=== PATIENT | male | born 1950 | race Caucasian/White ===

== ENCOUNTER → 2017-04-03 | Outpatient (CLI) | payer MEDICARE, OTHER ==
--- NOTE | 2017-04-04 08:43 | BD ---
EXAMINATION TYPE: MG DEXA axial skeleton. DATE OF EXAM: 04/03/2017 COMPARISON: NONE CLINICAL HISTORY: Osteoarthritis. Height: 63 Weight: 138 FRAX RISK QUESTIONS: Alcohol (3 or more units per day): no Family History (Parent hip fracture): no Glucocorticoids (More than 3mos): no (Ex: prednisone, prednisolone, methylprednisolone, dexamethasone, and hydrocortisone). History of Fracture in Adulthood: yes Secondary Osteoporosis: 1. Type 1 Diabetes: no 2. Hyperthyroidism: no 3. Menopause before 45: n/a 4. Malnutrition: no 5. Chronic liver disease: no Rheumatoid Arthritis: no Current Tobacco Use: no RISK FACTORS HISTORY OF: Hip Fracture (Right/Left): yes lt Spine Fracture: no History of Wrist Fracture: yes right Surgery to Spine/Hip(right/left)/Wrist (right/left): no Family History of Osteoporosis: no Active: yes Diet low in dairy products/other sources of calcium: no Lost more than 2 inches in height since high school: no Frequent falls: no Poor Health: no Hyperparathyroidism: no Adrenal Insufficiency: no MEDICATIONS: Additional History: EXAM MEASUREMENTS: Bone mineral densitometry was performed using the [employer] System. Bone mineral density as measured about the Lumbar spine is: ----- L1-L4(G/cm2): 1.250 T Score Values are as follows: ----- L2: -0.4 ----- L3: 0.8 ----- L4: 2.7 ----- L1-L4: 0.6 Bone mineral density baseline Bone mineral density about the R hip (g/cm2): 0.743 Bone mineral density about the L hip (g/cm2): 0.726 T Score values are as follows: -----R Neck: -2.1 -----L Neck: -2.2 -----R Total: -0.6 -----L Total: -0.8 Bone mineral density baseline IMPRESSION: Osteopenia (T Score between -2.5 and -1 as noted by T score values at femoral neck level in both hips . There is slightly increased risk of fracture and the patient may be considered for treatment. Re-Sc reen 2-5 years. NOTE: T-SCORE=SD OF THE YOUNG ADULT MEAN.
== END | disposition home or self-care (01) ==
LOC: RADBDWWP 16:28
PROVIDERS: ATTEND Family Medicine
DX: M85.851 Other specified disorders of bone density and structure, right thigh (principal); M85.852 Other specified disorders of bone density and structure, left thigh
CPT/HCPCS: 77080

== ENCOUNTER → 2020-08-09 | Outpatient (CLI) | payer MEDICARE ==
--- NOTE | 2020-08-10 12:00 | ECHOF ---
Referral Reason:I50.30 congestive heart failure MEASUREMENTS -------- HEIGHT: 160.0 cm WEIGHT: 68.0 kg BP: RVIDd: 4.3 cm (< 3.3) IVSd: 1.2 cm (0.6 - 1.1) LVIDd: 3.3 cm (3.9 - 5.3) LVPWd: 1.3 cm (0.6 - 1.1) IVSs: 1.8 cm LVIDs: 2.3 cm LVPWs: 1.5 cm LAESV Index (A-L): 39.45 ml/m Ao Diam: 3.1 cm (2.0 - 3.7) AV Cusp: 1.9 cm (1.5 - 2.6) MV E [place]: 1.77 m/s MV DecT: 466 ms MV A [place]: 2.37 m/s MV E/A Ratio: 0.74 AR PHT: 764 ms RAP: 5.00 mmHg RVSP: 47.90 mmHg FINDINGS -------- Sinus rhythm. This was a technically adequate study. The left ventricular size is normal. There is mild concentric left ventricular hypertrophy. Overa ll left ventricular systolic function is low-normal with, an EF between 50 - 55 %. Left ventricular fillimg pressure cannot be estimated due to severe mitral annular calcification. Septal wall motio n is delayed and consistent with prior cardiac surgery. The right ventricle is moderate to severely enlarged. LA is moderately dilated 34-39 ml/m2 The right atrial size is normal. Interatrial and interventricular septum intact. There is mild aortic valve sclerosis. There is mild aortic regurgitation. There is no evidence of aortic stenosis. Erlu-oi-cihezshy mitral regurgitation is present. Moderate mitral stenosis , with a MVA of 1.6cm ( by PHT) MV Repair. Moderate tricuspid regurgitation present. There is moderate pulmonary hypertension. The right vivian tricular systolic pressure, as measured by Doppler, is 47.90mmHg. There is no pulmonic regurgitation present. The aortic root size is normal. IVC Not well visulized. There is no pericardial effusion. CONCLUSIONS -------- 1. The left ventricular size is normal. 2. There is mild concentric left ventricular hypertrophy. 3. Overall left ventricular systolic function is low-normal with, an EF between 50 - 55 %. 4. LA is moderately dilated 34-39 ml/m2 5. There is mild aortic valve sclerosis. 6. There is mild aortic regurgitation. 7. Twbh-da-wvjdjfkl mitral regurgitation is present.status post mitral valve repair 8. Moderate mitral stenosis. 9. , with a MVA of 1.6cm (by PHT) 10. Moderate tricuspid regurgitation present. 11. There is moderate pulmonary hypertension. 12. The right ventricular systolic pressure, as measured by Doppler, is 47.90mmHg. [employer]ED [employer] PCB DESIGNER: Thelma Grigsby RDCS
== END | disposition home or self-care (01) ==
LOC: RADECHMAIN 16:09
PROVIDERS: ATTEND Family Medicine
DX: I08.1 Rheumatic disorders of both mitral and tricuspid valves (principal); I27.20 Pulmonary hypertension, unspecified
CPT/HCPCS: 93306

== ENCOUNTER → 2024-08-14 | Outpatient (CLI) | payer OTHER ==
--- NOTE | 2024-08-14 13:48 | US ---
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 TECHNIQUE: Multiple sonographic images of the abdominal aorta are obtained with grayscale and color D oppler imaging. FINDINGS: EXAM MEASUREMENTS: Abdominal Aorta: Proximal: 1.8 x Mid: 1.6 x Distal: obscured by bowel gas. Bifurcation: Right Iliac: obscured by bowel gas. Left Iliac: obscured by bowel gas. PROGRAM ATTENDANT NOTES: Incidental finding gallstone visualized. IMPRESSION: Suboptimal study.Advise further investigation with CT or MRI to assess for possible AAA. [email or web address] [facility], , 08/14/2024 1:45 PM
== END | disposition home or self-care (01) ==
LOC: RADUSWWP 13:08
PROVIDERS: ATTEND Internal Medicine Hospice and Palliative Medicine
DX: Z13.6 Encounter for screening for cardiovascular disorders (principal); I50.42 Chronic combined systolic (congestive) and diastolic (congestive) heart failure; I25.10 Atherosclerotic heart disease of native coronary artery without angina pectoris
CPT/HCPCS: 76706

== ENCOUNTER → 2024-08-19 | Outpatient (CLI) | payer OTHER ==
--- NOTE | 2024-08-19 11:31 | XR ---
EXAMINATION TYPE: XR knee complete RT DATE OF EXAM: 08/19/2024 CLINICAL INDICATION: Male, 74 years old with history of M25.561 RIGHT KNEE PAIN, pain TECHNIQUE: 3 views of the knee were obtained. COMPARISON: None. FINDINGS: There is no acute fracture/dislocation evident in right knee. Moderate to severe narrowing and moderate spurring lateral tibiofemoral compartment. There is moderate narrowing patellofemoral and medial tibiofemoral compartments. Mild to moderate spurring patella femoral compartment is seen. Posterior medial surgical clips in the soft tissue are present proximal tibial level. IMPRESSION: As above. Moderate to severe degenerative changes are seen. [facility], , 08/19/2024 11:29 AM
[2024-08-19 15:13] LABS: BUN/Creat Ratio 16.14 Ratio (12.00-20.00); Blood Urea Nitrogen 22.6 mg/dL (9.0-27.0); Calcium 9.8 mg/dL (8.7-10.3); Chloride 96 mmol/L (96-109); Glucose 88 mg/dL (70-110); Magnesium 2.1 mg/dL (1.5-2.4); Potassium 4.8 mmol/L (3.5-5.5); Sodium 137 mmol/L (135-145); T4, Free (Free Thyroxine) 1.47 ng/dL (0.80-1.80)
[2024-08-19 15:56] LABS: NT-Pro-B-Type Natriuretic Pept 7963 pg/mL (0-125)
[2024-08-19 17:42] LABS: Urine Creatinine 61.1 mg/dL (39.0-259.0)
== END | disposition home or self-care (01) ==
LOC: RADXRMAIN 10:45
PROVIDERS: ATTEND Internal Medicine Hospice and Palliative Medicine
DX: M17.11 Unilateral primary osteoarthritis, right knee (principal)
CPT/HCPCS: 80048; 82043; 82570; 83735; 83880; 84439; 84443

== ENCOUNTER 2024-09-26 11:25 | Emergency (ER) | payer OTHER, MEDICARE ==
[2024-09-26 11:43] VITALS: RESP 16
--- NOTE | 2024-09-26 12:19 | ED ---
Eye Problem HPI - General Chief complaint: Eye Problems Stated complaint: Blurred vision Time Seen by Provider: 09/26/24 11:47 Source: patient, RN notes reviewed Mode of arrival: wheelchair Limitations: no limitations - History of Present Illness Initial comments: This is a 74-year-old male who presents to the emergency department for blurry vision in the right eye. States that it has been going on for the last 2 to 3 days, but when he woke up this morning it became worse. Denies any problems with the left eye. Denies any headaches, dizziness, or other symptoms. He does state that it has been several years since he has had his eyes examined. Denies any history of strokes. Not taking any blood thinners. Denies any injuries to the eye. Also denies any history of similar problems in the past. MD chief complaint: vision change - Related Data Home Medications Medication Instructions Recorded Confirmed Aspirin EC [Ecotrin Low Dose] 81 mg PO BID 09/26/24 09/26/24 Budesonide/Formoterol Fumarate 2 puff INHALATION RT-BID 09/26/24 09/26/24 [Symbicort 160-4.5 Mcg Inhaler] Capsaicin 0.025% Cream 1 applic TOPICAL BID PRN 09/26/24 09/26/24 Cetirizine HCl [Zyrtec] 10 mg PO HS 09/26/24 09/26/24 Dapagliflozin Propanediol [Farxiga] 10 mg PO DAILY@1200 09/26/24 09/26/24 Dexlansoprazole [Dexilant] 60 mg PO DAILY 09/26/24 09/26/24 Docusate [Colace] 100 mg PO DAILY PRN 09/26/24 09/26/24 Furosemide [Lasix] 40 mg PO DAILY 09/26/24 09/26/24 HYDROcodone/APAP 10-325MG [[place] 1 tab PO TID PRN 09/26/24 09/26/24 10-325] Multivitamins, Thera [Multivitamin 1 tab PO DAILY 09/26/24 09/26/24 (formulary)] Ondansetron [Zofran] 4 mg PO Q8HR PRN 09/26/24 09/26/24 Pravastatin Sodium [Pravachol] 20 mg PO HS 09/26/24 09/26/24 Sacubitril/Valsartan [Entresto 24 1 tab PO BID 09/26/24 09/26/24 mg-26 mg Tablet] Spironolactone [Aldactone] 12.5 mg PO DAILY 09/26/24 09/26/24 atenoloL [Tenormin] 25 mg PO DAILY 09/26/24 09/26/24 polyethylene glycoL 3350 [Miralax] 17 gm PO DAILY PRN 09/26/24 09/26/24 Allergies Allergy/AdvReac Type Severity Reaction Status Date / Time Penicillins Allergy Unknown Verified 09/26/24 14:47 Review of Systems ROS Statement: Those systems with pertinent positive or pertinent negative responses have been documented in the HPI. ROS Other: All systems not noted in ROS Statement are negative. Past Medical History Past Medical History: Coronary Artery Disease (CAD), Hyperlipidemia, Hyp ertension History of Any Multi-Drug Resistant Organisms: None Reported Past Surgical History: Coronary Bypass/CABG Past Psychological History: No Psychological Hx Reported Smoking Status: Never smoker Past Alcohol Use History: None Reported Past Drug Use History: None Reported General Exam Limitations: no limitations General appearance: alert, in no apparent distress Head exam: Present: atraumatic, normocephalic, normal inspection Eye exam: Present: normal appearance, PERRL, EOMI. Absent: scleral icterus, conjunctival injection, periorbital swelling Expanded Visual acuity (R) = 20/: 30 Visual acuity (L) = 20/: 40 IOP (R) in mmH IOP (L) in mmH IOP measured with: [place] Respiratory exam: Present: normal lung sounds bilaterally. Absent: respiratory distress, wheezes, rales, rhonchi, stridor Cardiovascular Exam: Present: regular rate, normal rhythm Neurological exam: Present: alert, oriented X3, CN II-XII intact Expanded Cerebellar function: Finger to Nose: Normal, Heel to Guevara: Normal, Romberg: Normal Upper motor neuron: Pronator Drift: Normal, Sensory Extinction: Normal Motor strength exam: RUE: 5, LUE: 5, RLE: 5, LLE: 5 Psychiatric exam: Present: normal affect, normal mood Skin exam: Present: warm, dry, intact, normal color. Absent: rash Course Vital Signs 09/26/24 09/26/24 09/26/24 11:40 14:17 16:36 Temperature 98 F 98.8 F Pulse Rate 77 77 80 Respiratory 16 16 16 Rate Blood Pressure 119/55 157/101 151/98 O2 Sat by Pulse 95 95 95 Oximetry Medical Decision Making - Medical Decision Making This is a 74-year-old male who presents to the emergency department for vision loss in the right eye. Was pt. sent in by a medical professional or institution? @ -No Did you speak to anyone other than the patient for history? @ -No Did you review nursing and triage notes? @ -Yes, and I agree, it is accurate with regards to the patient's symptoms. Were old charts reviewed? @ -No Differential Diagnosis? @ -CVA/TIA, retinal detachment, glaucoma, cataract, retinal artery occlusion, this is not meant to be an all-inclusive list. EKG interpreted by me (3pts min.)? @ -Not obtained X-rays interpreted by me (1pt min.)? @ -Not obtained CT interpreted by me (1pt min.)? @ -CT scan of the brain obtained. My interpretation identifies no acute intracranial hemorrhage. CTA of the head and neck obtained. My interpretation identifies no evidence of an aneurysm. U/S interpreted by me (1pt. min.)? @ -Not obtained What testing was considered but not performed? (CT, X-rays, U/S, labs)? Why? @ -None What meds were considered but not given? Why? @ -None Did you discuss the management of the patient with other professionals? @ -No Did you reconcile home meds? @ -No Was smoking cessation discussed for >3mins.? @ -No Was critical care preformed (if so, how long)? @ -No Were there social determinants of health that impacted care today? How? (H omelessness, low income, unemployed, alcoholism, drug addiction, transportation, low edu. Level, literacy, decrease access to med. care, [facility], rehab)? @ -No Was there de-escalation of care discussed even if they declined? (Discuss DNR or withdrawal of care, Hospice)? @ -No What co-morbidities impacted this encounter? (DM, HTN, Smoking, COPD, CAD, Cancer, CVA, Hep., AIDS, mental health diagnosis, sleep apnea, morbid obesity)? @ -CAD, HLD, HTN Was patient admitted / discharged? @ -Discharged. Bedside ocular ultrasound performed with ED attending, Dr. Brewer. No signs of retinal detachment or other acute process was identified. NIH performed as well and symptoms are all localized to the right eye. Lab work demonstrates mild leukopenia with a white blood cell count of 3.94 and is otherwise unremarkable. CT scan of the brain and CTA of the head and neck obtained revealing no acute process. Visual acuity performed and his vision is actually better in what he says is the affected eye. He was 20/30 in the right eye and 20/40 in the left. IOP's within normal limits at 15 in the right and 14 in the left. States that he is established with Dr. Andrews, ophthalmology. However, given that patient follows with Magda gordillo all appointments have to go directly through them. Case management coordinated with Magda gordillo who will schedule the patient an appointment with ophthalmology. Patient discharged home in stable condition. Case discussed with ED attending Dr. Brewer. Return precautions reviewed in depth, the patient is instructed to return to the emergency department with any new, worsening, or concerning symptoms. Patient verbalized understanding. Undiagnosed new problem with uncertain prognosis? @ -None Drug Therapy requiring intensive monitoring for toxicity (Heparin, Nitro, Insulin, Cardizem)? @ -None Were any procedures done? @ -None Diagnosis/symptom? @ -Blurry vision of the right eye Acute, or Chronic, or Acute on Chronic? @ -Acute Uncomplicated (without systemic symptoms) or Complicated (systemic symptoms)? @ -Uncomplicated Side effects of treatment? @ -None Exacerbation, Progression, or Severe Exacerbation] @ -Not applicable Poses a threat to life or bodily function? @ -This will depend on the cause and how he progresses - Lab Data Result diagrams: 09/26/24 12:17 09/26/24 12:17 Lab Results 09/26/24 09/26/24 09/26/24 Range/Units 12:17 12:17 12:17 WBC 3.94 L (4.50-10.00) 10*3/uL RBC 4.45 (4.40-5.60) 10*6/uL Hgb 13.1 (13.0-17.0) g/dL Hct 39.4 L (39.6-50.0) % MCV 88.5 (80.0-97.0) fL MCH 29.4 (27.0-32.0) pg MCHC 33.2 (32.0-37.0) g/dL Plt Count 180 (140-440) 10*3/uL MPV 8.7 L (9.5-12.2) fL Immature Gran % (Auto) 0 % Neutrophils % 61.2 % Lymphocytes % 23.6 % Monocytes % 11.2 % Eosinophils % 3.0 % Basophils % 1.0 % Immature Gran # 0.00 (0.00-0.04) 10*3/uL Neutrophils # 2.41 (1.80-7.70) 10*3/uL Lymphocytes # 0.93 (0.90-5.00) 10*3/uL Monocytes # 0.44 (0.20-1.00) 10*3/uL Eosinophils # 0.12 (0.04-0.35) 10*3/uL Basophils # 0.04 (0.00-0.10) 10*3/uL PT 12.0 (10.0-12.5) sec INR 1.1 (<1.2) APTT 26.1 (22.0-30.0) sec Sodium 134 L (137-145) mmol/L Potassium 4.4 (3.5-5.1) mmol/L Chloride 97 L (98-107) mmol/L Carbon Dioxide 27 (22-30) mmol/L Anion Gap 10 mmol/L BUN 22 H (9-20) mg/dL Creatinine 1.10 (0.66-1.25) mg/dL Est GFR (CKD-EPI)AfAm 76 (>60 ml/min/1.73 sqM) Est GFR (CKD-EPI)NonAf 66 (>60 ml/min/1.73 sqM) Glucose 128 H (74-99) mg/dL Calcium 9.9 (8.4-10.2) mg/dL Total Bilirubin 0.6 (0.2-1.3) mg/dL AST 29 (17-59) U/L ALT 27 (4-49) U/L Alkaline Phosphatase 74 (38-126) U/L Total Protein 6.2 L (6.3-8.2) g/dL Albumin 3.7 (3.5-5.0) g/dL - Radiology Data Radiology results: report reviewed, image reviewed Disposition Clinical Impression: Blurred vision, right eye Disposition: HOME SELF-CARE Instructions (If sedation given, give patient instructions): Blurred Vision (ED) Additional Instructions: Return to the emergency department with any new, worsening, or concerning symptoms. Magda gordillo will be working with ophthalmology to get you scheduled. They will contact you when they get the appointment set up. Please return if the vision gets worse, you develop increasing pain, or any additional symptoms. Is patient prescribed a controlled substance at d/c from ED?: No Referrals: Luiz Batista Jr, [Primary Care Provider] - 1-2 days Geoff Andrews MD [STAFF PHYSICIAN] - 1-2 days (Please follow up with Magda GORDILLO regarding this appointment. ) Time of Disposition: 16:03
[2024-09-26 12:59] LABS: Basophils # (A) 0.04 10*3/uL (0.00-0.10); Eosinophils # (A) 0.12 10*3/uL (0.04-0.35); HCT 39.4 % (39.6-50.0); HGB 13.1 g/dL (13.0-17.0); Lymphocytes # (A) 0.93 10*3/uL (0.90-5.00); Lymphocytes % (A) 23.6 %; MCH 29.4 pg (27.0-32.0); MCHC 33.2 g/dL (32.0-37.0); MCV 88.5 fL (80.0-97.0); Mean Platelet Volume 8.7 fL (9.5-12.2); Monocytes # (A) 0.44 10*3/uL (0.20-1.00); Monocytes % (A) 11.2 %; Neutrophils # (A) 2.41 10*3/uL (1.80-7.70); Neutrophils % (A) 61.2 %; Platelet Count 180 10*3/uL (140-440); RBC 4.45 10*6/uL (4.40-5.60); RDW 14.4 % (11.5-14.5); WBC 3.94 10*3/uL (4.50-10.00)
[2024-09-26 13:12] LABS: ALT 27 U/L (4-49); AST 29 U/L (17-59); African American GFR (CKD) 76 (>60 ml/min/1.73 sqM); Albumin 3.7 g/dL (3.5-5.0); Alkaline Phosphatase 74 U/L (38-126); Anion Gap 10 mmol/L; Blood Urea Nitrogen 22 mg/dL (9-20); Calcium 9.9 mg/dL (8.4-10.2); Carbon Dioxide 27 mmol/L (22-30); Chloride 97 mmol/L (98-107); Glucose 128 mg/dL (74-99); Non-African American GFR(CKD) 66 (>60 ml/min/1.73 sqM); Potassium 4.4 mmol/L (3.5-5.1); Sodium 134 mmol/L (137-145); Total Bilirubin 0.6 mg/dL (0.2-1.3); Total Protein 6.2 g/dL (6.3-8.2)
[2024-09-26 13:24] LABS: INR 1.1 (<1.2); Partial Thromboplastin Time 26.1 sec (22.0-30.0)
--- NOTE | 2024-09-26 14:06 | CT ---
EXAMINATION TYPE: CT brain wo con DATE OF EXAM: 09/26/2024 2:00 PM COMPARISON: None. CLINICAL INDICATION: Male, 74 years old with history of Right eye vision loss, RT eye vision loss. TECHNIQUE: CT of the brain is performed utilizing 3 mm thick sections through the posterior fossa and 3 mm thick sections through the remaining calvarium. Study is performed within 24 hours of arrival to the hospital. Contrast used: mL of , (none if empty) CT DLP: 1130 mGycm, Automated exposure control for dose reduction was used. FINDINGS: No abnormal hyperdensity is present to suggest an acute intracranial hemorrhage. No mass lesion is evident. No acute infarcts are evident. Ventricles and sulci are appropriate for the patient age. Paranasal sinuses and mastoid air cells within the iynht-oh-nrdo are clear. IMPRESSION: 1. No acute intracranial process. Follow up MRI can be performed as clinically indicated. [facility], , 09/26/2024 2:04 PM
--- NOTE | 2024-09-26 14:51 | CT ---
EXAMINATION TYPE: CT angio head neck DATE OF EXAM: 09/26/2024 2:24 PM COMPARISON: None. CLINICAL INDICATION: Male, 74 years old with history of Right eye vision loss, RT eye vision loss. TECHNIQUE: CTA scan is performed with axial images are obtained, coronal and sagittal reformatted yashira ges are reviewed. MIP images created on a separate workstation and submitted for review. 3-D reconstr ucted images are created on an independent workstation and reviewed. Source images are reviewed. CINTHYA CET criteria was used in interpretation of this exam? Contrast used:65 ml mL of Isovue 370 with IV Contrast, (none if empty) Oral contrast used: (none if empty) CT DLP: 332.2 mGycm, Automated exposure control for dose reduction was used. FINDINGS: Carotid/Vascular Structures: There is a 2 vessel arch. There is a common origin of the innominate and left common carotid artery. Common carotid arteries bifurcate into internal and external carotid arteries without significant adore w limiting stenosis. Vascular calcification is evident at the proximal right internal carotid artery milder calcifications at the left internal carotid artery origin there is tortuosity of the vessels. Right vertebral artery is dominant. Internal carotid arteries and vertebral arteries are patent to the skull base. Cervical of [place]: Vertebral basilar system appears normal. Posterior cerebral vasculature is unrema rkable. Internal carotid arteries bifurcate normally into A1 and M1 segments. A2 segments are normal. The anterior communicating artery is not identified. The right posterior communicating artery is patent. The left posterior communicating artery is patent. Other: IMPRESSION: 1. Atheromatous plaquing bilateral carotid bifurcations with mild narrowing less than 50%. 2. Normal [place] of [place] [facility], , 09/26/2024 2:49 PM
[2024-09-26 16:38] VITALS: BP 151/98; PULSE 80; TEMP 98.8
== END 2024-09-26 16:37 | disposition home or self-care (01) ==
LOC: SUPCPDRO 11:25 → EC 11:25
DX: H53.8 Other visual disturbances (principal); I25.10 Atherosclerotic heart disease of native coronary artery without angina pectoris; E78.5 Hyperlipidemia, unspecified; I10 Essential (primary) hypertension; Z88.0 Allergy status to penicillin
CPT/HCPCS: 36415; 80053; 85025; 85610; 85730; 70496; 70450; 70498; 99284; Q9967